=== PATIENT | male | born 1990 | race Caucasian/White ===

== ENCOUNTER 2016-08-21 15:01 | Emergency (ER) | payer OTHER ==
[2016-08-21 15:13] VITALS: BP 141/69
[2016-08-21] MEDS ORDERED: NS 0.9% 1000 ML* 1,000 ML IV ONE (15:15)
--- NOTE | 2016-08-21 15:18 | ED ---
Progress - Progress Note Progress Note: 26 yo without seizure hx reports a witnessed sz only risk appears to be recent lack of sleep due to a return trip from [place]. Pt not post ictal at this point. Labs and ct brain ordered Course/Dx - Diagnoses Provider Diagnoses: Seizure
--- NOTE | 2016-08-21 16:23 | RAD ---
Indication: Seizures. Single frontal view of the chest performed at 1550 hours was reviewed. No prior study is available for comparison. No mediastinal shift is noted. Heart is of normal size and configuration. Lung arrington appear clear. IMPRESSION: NO ACTIVE CARDIOPULMONARY DISEASE IS NOTED.
--- NOTE | 2016-08-21 16:29 | RAD ---
Indication: Witnessed seizure without history of prior seizure. Comparison: None. Technique: Noncontrast CT vertex of skull through foramen magnum. Report: The sulci, ventricles, and basal cisterns are normal for age. Levy matter white matter differentiation is preserved without evidence for edema. No intra or extra axial hemorrhage, mass, or fluid collection detected. Unremarkable orbital contents. Unremarkable calvarium and skull base. Unremarkable scalp. The visualized paranasal sinuses and mastoid air spaces are clear. IMPRESSION: Negative unenhanced head CT.
[2016-08-21 16:33] LABS: Hematocrit 48 % (42-52); Hemoglobin 15.6 g/dl (14.0-18.0); Mean Corpuscular HGB Conc 33 g/dl (31-36); Mean Corpuscular Hemoglobin 28 pg (27-31); Mean Corpuscular Volume 85 fL (80-94); Mean Platelet Volume 8 um3 (7.4-10.4); Red Blood Count 5.62 10^6/ul (4.0-5.4); Red Cell Distribution Width 14 % (10.5-15); White Blood Count 12.6 10^3/ul (3.5-10.8)
[2016-08-21 16:34] LABS: Comments Flag Yes
[2016-08-21 16:36] LABS: Add Diff/Slide Review? Slide Review Added
[2016-08-21 17:10] LABS: Albumin 4.3 g/dL (3.2-5.2); BUN/Creatinine Ratio 8.9 (8-20); C Reactive Protein 1.49 mg/L (< 5.00); Calcium 9.7 mg/dL (8.6-10.3); EGFR African American 102.7 (>60); EGFR Non-African American 79.9 (>60); Globulin 3.1 g/dL (2-4); Magnesium 2.4 mg/dL (1.9-2.7); Potassium 3.9 mmol/L (3.5-5.0); Total Bilirubin 0.4 mg/dL (0.2-1.0); Total Protein 7.4 g/dL (6.4-8.9)
[2016-08-21] MEDS ORDERED: clonazePAM TAB(*) 1 MG PO ONE (17:15)
[2016-08-21] MEDS ORDERED: clonazePAM TAB(*) 0.5 MG ONE (17:23)
[2016-08-21] MEDS ORDERED: clonazePAM TAB(*) 1 MG PO PRN (18:09)
--- NOTE | 2016-08-21 18:19 | ED ---
Lisha Marshall SooYoung, scribed for Jam Farmer MD on 08/21/16 at 1551 . 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 Pt states he doesn't remember much. He was getting coffee and was walking back to his car, and the next thing he remembers, he woke up in the ambulance. EMS told pt he had had two sz. Associated sx: mild general body twitching, generalized weakness. Denies past sz. Current Rx: Lexapro, Klonopin. Pt has not taken his Klonopin for past two weeks. Has been recently traveling abroad. - History of Current Complaint Chief Complaint: EDSeizure Stated Complaint: SEIZURES Time Seen by Provider: 08/21/16 15:49 Hx Obtained From: Patient Onset/Duration: Sudden Onset, Resolved Number of Seizures: 2 - according to EMS Pain Intensity: 6 Pain Scale Used: 0-10 Numeric - Allergy/Home Medications Allergies/Adverse Reactions: Allergies Allergy/AdvReac Type Severity Reaction Status Date / Time No Known Allergies Allergy Verified 08/21/16 17:19 PMH/Surg Hx/FS Hx/Imm Hx Previously Healthy: Yes Psychiatric History: Reports: Hx Anxiety Infectious Disease History: No Infectious Disease History: Reports: Traveled Outside the [place] in Last 30 Days - Family History Known Family History: Positive: Hypertension - grandparents Negative: Cardiac Disease, Diabetes - Social History Occupation: Unemployed - OTHER Lives: Alone Review of Systems Positive: Other - pos: full body twitches. 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 Positive: Weakness - generalized All Other Systems Reviewed And Are Negative: Yes Physical Exam - Summary Physical Exam Summary: Fran: well-appearing, no pain distress Skin: warm, skin color reflects adequate perfusion, dry Head/Face: nml head/face inspection Eyes: EOMI, NURIS ENT: nml Neck: supple, non-tender Resp: CTA, breath sounds present Cardio: RRR Abd: nontender, soft Bowel: present Musc: nml, strength/ROM intact Neuro: nml, sensory/motor intact, A&O x 3 Psych: affect/mood appropriate Triage Information Reviewed: Yes Vital Signs On Initial Exam: Initial Vitals Temp Pulse Resp BP Pulse Ox 98.2 F 97 16 141/69 99 08/21/16 15:09 08/21/16 15:09 08/21/16 15:09 08/21/16 15:09 08/21/16 15:09 Vital Signs Reviewed: Yes Diagnostics - Vital Signs Vital Signs Temp Pulse Resp BP Pulse Ox 08/21/16 15:09 98.2 F 97 16 141/69 99 - Laboratory Lab Results: Lab Results 08/21/16 08/21/16 08/21/16 Range/Units 16:10 16:10 16:10 WBC 12.6 H (3.5-10.8) 10^3/ul RBC 5.62 H (4.0-5.4) 10^6/ul Hgb 15.6 (14.0-18.0) g/dl Hct 48 (42-52) % MCV 85 (80-94) fL MCH 28 (27-31) pg MCHC 33 (31-36) g/dl RDW 14 (10.5-15) % Plt Count 314 (150-450) 10^3/ul MPV 8 (7.4-10.4) um3 Neut % (Auto) 77.8 (38-83) % Lymph % (Auto) 12.3 L (25-47) % Kimble % (Auto) 9.0 (1-9) % Eos % (Auto) 0.6 (0-6) % Baso % (Auto) 0.3 (0-2) % Absolute Neuts (auto) 9.8 H (1.5-7.7) 10^3/ul Absolute Lymphs (auto) 1.6 (1.0-4.8) 10^3/ul Absolute Monos (auto) 1.1 H (0-0.8) 10^3/ul Absolute Eos (auto) 0.1 (0-0.6) 10^3/ul Absolute Basos (auto) 0 (0-0.2) 10^3/ul Absolute Nucleated RBC 0.01 10^3/ul Nucleated RBC % 0 INR (Anticoag Therapy) 0.89 (0.89-1.11) Sodium 136 (133-145) mmol/L Potassium 3.9 (3.5-5.0) mmol/L Chloride 101 (101-111) mmol/L Carbon Dioxide 27 (22-32) mmol/L Anion Gap 8 (2-11) mmol/L BUN 10 (6-24) mg/dL Creatinine 1.12 (0.67-1.17) mg/dL Est GFR ( Amer) 102.7 (>60) Est GFR (Non-Af Amer) 79.9 (>60) BUN/Creatinine Ratio 8.9 (8-20) Glucose 88 (70-100) mg/dL Calcium 9.7 (8.6-10.3) mg/dL Magnesium 2.4 (1.9-2.7) mg/dL Total Bilirubin 0.40 (0.2-1.0) mg/dL AST 17 (13-39) U/L ALT 13 (7-52) U/L Alkaline Phosphatase 83 (34-104) U/L Total Creatine Kinase 133 (10-223) U/L CK-MB (CK-2) 1.7 (0.6-6.3) ng/mL Troponin I 0.00 (<0.04) ng/mL C-Reactive Protein 1.49 (< 5.00) mg/L Total Protein 7.4 (6.4-8.9) g/dL Albumin 4.3 (3.2-5.2) g/dL Globulin 3.1 (2-4) g/dL Albumin/Globulin Ratio 1.4 (1-3) Result Diagrams: 08/21/16 16:10 08/21/16 16:10 Lab Statement: Any lab studies that have been ordered have been reviewed, and results considered in the medical decision making process. - Radiology CXR Xray Interpretation: No Acute Changes - IMPRESSION: No active cardiopulmonary dz is noted. Radiology Interpretation Completed By: Radiologist - CT Brain CT CT Interpretation: No Acute Changes - IMPRESSION: Negative unenhanced head CT. CT Interpretation Completed By: Radiologist - EKG 1 EKG Rhythm: Sinus Bradycardia - [address] Segment: Normal Ectopy: None Re-Evaluation - Re-Evaluation 1 Re-Evaluation Time: 17:46 Change: Improved Comment: Discussing results and neuro recommendations with pt. Course/Dx - Course Assessment/Plan: PATIENT HAS BEEN ON CLONAZEPAM 2MG PO QID PRN. HE RAN OUT 2 WEEKS AGO[address] DISCUSS[address] SALGADO, NEUROLOGY. MOST PROBABLE CAUSE IS WITHDRAWAL SEIZURE. HE RECOMMENDS OUT PATIENT BRAIN MRI AND NEUROLOGY F/U. DISCUSSED WITH PATIENT NO DRIVING UNTIL CLEARED BY NEUROLOGY. DISCHARGE HOME STABLE. - Diagnoses Provider Diagnoses: Seizure, Drug withdrawal seizure - Physician Notifications Discussed Care of Patient With: 1718: Spoke to Dr. Salgado, neurology, calling it a provoked sz, recommends to restart Klonopin and f/u as outpatient, pt does not need to be admitted. Discharge - Discharge Plan Condition: Stable Disposition: HOME Prescriptions: Clonazepam [Klonopin] 2 mg PO QID PRN #20 tab MDD 4 PRN Reason: Anxiety Patient Education Materials: New-Onset Seizure in Adults (ED) Referrals: [facility] [place] [facility] [Outside] No Primary Care Phys,NOPCP [Primary Care Provider] - Tyrel Salgado MD [Medical Doctor] - Additional Instructions: FOLLOW UP WITH YOUR PRIMARY CARE DOCTOR AND A NEUROLOGIST. YOUR CASE WAS DISCUSSED IN THE EMERGENCY DEPARTMENT WITH OUR NEUROLOGIST, DR SALGADO. HE RECOMMENDED AN OUTPATIENT BRAIN MRI AND FOLLOW UP WITH NEUROLOGY. YOUR SEIZURE WAS MOST LIKELY CAUSED BY WITHDRAWAL FROM THE CLONAZEPAM. DO NOT DRIVE UNTIL YOU ARE CLEARED BY A NEUROLOGIST. RETURN TO THE EMERGENCY DEPARTMENT FOR ANY WORSENING OF YOUR CONDITION OR QUESTIONS OR CONCERNS. The documentation as recorded by the Lisha buchanan SooYoung accurately reflects the service I personally performed and the decisions made by me, Jam Farmer MD.
== END 2016-08-21 18:46 | disposition home or self-care (01) ==
LOC: ED 15:01
DX: R56.9 Unspecified convulsions (principal); F19.939 Other psychoactive substance use, unspecified with withdrawal, unspecified
CPT/HCPCS: 36415; 70450; 71010; 80053; 82550; 82553; 83735; 84484; 85025; 85610; 86140; 93005; 99283; A9270-GY